=== PATIENT | male | born 1960 | race Caucasian/White ===

== ENCOUNTER 2016-04-14 21:13 | Outpatient (CLI) ==
[2015-05-15 04:15] VITALS: BMI 23.0
== END 2016-04-14 21:14 ==
LOC: AMBL 21:13
PROVIDERS: ATTEND Family Medicine
DX: R55 Syncope and collapse (principal); R41.82 Altered mental status, unspecified; R06.9 Unspecified abnormalities of breathing; R53.1 Weakness; R00.0 Tachycardia, unspecified; R40.2411 Glasgow coma scale score 13-15, in the field [EMT or ambulance]; Z95.2 Presence of prosthetic heart valve